=== PATIENT | male | born 1955 | race Caucasian/White ===

== ENCOUNTER 2016-10-05 19:34 | Inpatient (IN) | payer MEDICARE, OTHER ==
[2016-10-05 19:59] LABS: IMM NEUT # 0.1 K/mm3 (0-0.2)
[2016-10-05] MEDS ORDERED: LIDOCAINE 2% UROJECT 10 ML ONE (20:06)
[2016-10-05 20:17] LABS: BASO # 0.1 K/mm3 (0.0-0.2); EOS # 0.1 (0.0-0.5); LYMPH # 0.8 (1.0-4.8); MEAN PLATELET VOLUME 8.9 fl (7.4-10.4); MONO # 0.9 (0.0-0.8)
[2016-10-05 20:22] LABS: HEMATOCRIT 26.6 % (32.0-52.0); HEMOGLOBIN 8.5 gm/l (14.0-18.0); MEAN CELL VOLUME 86.9 fl (80.0-94.0); MEAN CORPUSCULAR HEMOGLOBIN 27.8 pg (27.0-31.0)
[2016-10-05 20:23] LABS: BASO % 0.4 % (0.2-1.0); EOS % 0.9 % (0.9-2.9); IMM NEUT% 0.5 % (0-1); LYMPH % 5.4 % (15-45); MONO % 6.3 % (4-12); NEUT % 86.5 % (43-75); PLATELET COUNT 312 K/mm3 (130-400); RED CELL DISTRIBUTION WIDTH 14.3 % (11.5-14.5)
[2016-10-05] MEDS ORDERED: ACETAMINOPHEN 500 MG TABLET ONE (20:24)
[2016-10-05] MEDS ORDERED: PANTOPRAZOLE SODIUM 40 MG VIAL IV ONE (20:24)
[2016-10-05] MEDS ORDERED: ONDANSETRON 4 MG/2ML 2 ML VIAL ONE (20:24)
[2016-10-05 20:31] LABS: BLOOD UREA NITROGEN 38 mg/dL (7-25); BUN/CREATININE RATIO 24 (6-20); GLOMERULAR FILTRATION RATE 44 mL/min (60-85)
[2016-10-05 20:32] LABS: ALB/GLOB RATIO 0.8 (>1.0); ALBUMIN 2.3 gm/dL (3.5-5.7); ALT/SGPT 13 U/L (7-52); CALCIUM 7.9 mg/dL (8.6-10.3); MAGNESIUM 1.5 mg/dL (1.9-2.7)
[2016-10-05 20:34] LABS: C-REACTIVE PROTEIN 7.1 mg/dl (<1.0); LIPASE < 3 U/L (11-82)
[2016-10-05 21:04] LABS: PH,URINE 6.5 (5.0-8.0); URINE BILIRUBIN NEGATIVE (NEGATIVE); URINE BLOOD 4+ (NEGATIVE); URINE GLUCOSE (UA) NEGATIVE (NEGATIVE); URINE LEUKOCYTE ESTERASE 2+ (NEGATIVE); URINE NITRITE NEGATIVE (NEGATIVE); URINE PROTEIN 3+ (NEGATIVE); URINE UROBILINOGEN NORMAL (0-1 mg/dl)
[2016-10-05 21:05] LABS: URINE APPEARANCE TURBID; URINE COLOR RED
[2016-10-05 21:06] LABS: INR 1.23
[2016-10-05 21:10] LABS: URINE EPITHELIAL CELLS 0 /hpf; URINE RBC PACKED /hpf; URINE WBC PACKED /hpf
[2016-10-05 21:11] LABS: URINE BACTERIA 1+
[2016-10-05] MEDS ORDERED: CEFTRIAXONE 2 GRAM DUPLEX 50 ML IV ONE (21:47)
[2016-10-05 22:21] VITALS: BMI 26.5
[2016-10-05] MEDS ORDERED: BISACODYL 10 MG SUP PR PRN (22:25)
[2016-10-05] MEDS ORDERED: ACETAMINOPHEN 325 MG TABLET PO PRN (22:25)
[2016-10-05] MEDS ORDERED: SODIUM CHLORIDE 0.9% 100 ML IV PRN (22:25)
[2016-10-05] MEDS ORDERED: BISACODYL 5 MG TABLET.EC PO PRN ×2 (22:25→22:30)
[2016-10-05] MEDS ORDERED: BLISTEX LIPSTICK 1 EACH TP PRN (22:25)
[2016-10-05] MEDS ORDERED: MENTHOL/CETYLPYRD 1 EACH LOZENGE PO PRN (22:25)
[2016-10-05] MEDS ORDERED: MAGNESIUM HYDROXIDE 30 ML UDCUP PO PRN (22:25)
[2016-10-05 22:26] VITALS: BP 116/76
[2016-10-05] MEDS ORDERED: TRAMADOL HCL 50 MG TABLET PO PRN (22:30)
[2016-10-05] MEDS ORDERED: SODIUM CHLORIDE 0.9% 1,000 ML IV SCH (22:30)
[2016-10-05] MEDS ORDERED: SODIUM CHLORIDE 0.9% 500 ML IV SCH (22:30)
[2016-10-05] MEDS ORDERED: LORAZEPAM 0.5 MG TABLET PO PRN (22:30)
[2016-10-05] MEDS ORDERED: GENTAMICIN SULFATE 0 MG in SODIUM CHLORIDE 0.9% 100 ML IV SCH (22:30)
[2016-10-05] MEDS ORDERED: HYDROCODONE/ACETAMINOPHEN 5/325MG TABLET PO PRN (22:30)
[2016-10-05] MEDS ORDERED: SODIUM CHLORIDE 0.9% 500 ML IV PRN ×2 (22:49→23:13)
[2016-10-05] MEDS ORDERED: FUROSEMIDE 20 MG/2 ML VIAL IV ONE (22:49)
[2016-10-05] MEDS ORDERED: INSULIN ASPART (DOSE) 100 UNITS/1 ML SUB-Q PRN (22:51)
[2016-10-05] MEDS ORDERED: SIMVASTATIN 10 MG TABLET PO SCH (22:53)
[2016-10-05] MEDS ORDERED: Cefepime HCl 2 G in SODIUM CHLORIDE 0.9% 50 ML IV SCH (23:00)
[2016-10-05] MEDS ORDERED: Cefepime HCl 2 G in NS 0.9% (MINI-BAG PLUS) 50 ML IV SCH (23:00)
[2016-10-05] MEDS ORDERED: PANTOPRAZOLE SODIUM 40 MG VIAL IV SCH (23:00)
[2016-10-05 23:01] LABS: HEMATOCRIT 22.6 % (32.0-52.0); HEMOGLOBIN 7.4 gm/l (14.0-18.0); MEAN CELL VOLUME 85.6 fl (80.0-94.0); MEAN CORPUSCULAR HGB CONC 32.7 g/dl (33.0-37.0); RED CELL DISTRIBUTION WIDTH 14.3 % (11.5-14.5)
[2016-10-05] MEDS ORDERED: DOCUSATE SODIUM 100 MG CAPSULE PO SCH (23:26)
[2016-10-05] MEDS ORDERED: CARVEDILOL 25 MG TABLET PO SCH (23:26)
[2016-10-05] MEDS ORDERED: SENNA/DOCUSATE SODIUM 8.6/50 MG EACH TABLET PO SCH (23:26)
[2016-10-06] MEDS ORDERED: PIPERACILLIN-TAZO PREMIX BAG 3.375 G in Premix (D5W) 50 ml 1 EACH IV SCH ×2
[2016-10-06] MEDS ORDERED: TAMSULOSIN HCL 0.4 MG CAPSULE.DR PO SCH (09:00)
[2016-10-06] MEDS ORDERED: MULTIVITAMINS 1 TAB TABLET PO SCH (09:00)
[2016-10-06] MEDS ORDERED: FERROUS SULFATE (65 Fe) 325 MG TABLET PO SCH (09:00)
== END 2016-10-05 23:59 | disposition still patient (30) | DRG 700 ==
LOC: ED 19:34 → ICU 21:08
PROVIDERS: ADMIT Family Medicine; ATTEND Family Medicine
DX: T83.091A Other mechanical complication of indwelling urethral catheter, initial encounter (principal)